=== PATIENT | male | born 1980 | race Caucasian/White ===

== ENCOUNTER → 2022-11-01 09:40 | Outpatient (BNVA) | payer OTHER, SELFPAY | PROVIDERS: Visit Provider Physician Assistant Medical | DX: S86.111A Strain of other muscle(s) and tendon(s) of posterior muscle group at lower leg level, right leg, initial encounter (principal); V86.41XA Person injured while boarding or alighting from ambulance or fire engine, initial encounter | CPT/HCPCS: 99203 ==

== ENCOUNTER → 2022-11-03 09:59 | Outpatient (BNVA) | payer OTHER, SELFPAY | PROVIDERS: Visit Provider Physician Assistant Medical | DX: S86.111A Strain of other muscle(s) and tendon(s) of posterior muscle group at lower leg level, right leg, initial encounter (principal); V86.41XA Person injured while boarding or alighting from ambulance or fire engine, initial encounter | CPT/HCPCS: 99213 ==